=== PATIENT | female | born 1985 | race Caucasian/White ===

== ENCOUNTER 2024-01-01 08:41 | Day surgery (SDC) | payer BC, MEDICAID ==
[~2024-01-01] VITALS: Ht 152.4 cm; Wt 88.5 kg
[2024-01-01 11:02] LABS: HCG,QUAL RESULT NEGATIVE (NEGATIVE)
[2024-01-01] MEDS ORDERED: fentaNYL CITRATE/PF 100 MCG/2 ML AMP ONE (11:33)
[2024-01-01] MEDS ORDERED: MIDAZOLAM HCL 2 MG/2 ML VIAL (VERSED) ONE (11:33)
[2024-01-01] MEDS ORDERED: ACETAMINOPHEN I.V. 1000 MG 100 ML IV ONE (11:34)
[2024-01-01] MEDS ORDERED: PROPOFOL 200MG/ 20ML VIAL (DIPRIVAN) IV ONE (12:01)
[2024-01-01] MEDS ORDERED: NS IRRIG SOLN 1000 ML IR ONE (12:01)
[2024-01-01] MEDS ORDERED: LR 1,000 ML IV.SOLN IV ONE (12:01)
[2024-01-01] MEDS ORDERED: ONDANSETRON HCL 4 MG/2 ML VIAL IVP PRN (12:30)
[2024-01-01] MEDS ORDERED: fentaNYL CITRATE/PF 100 MCG/2 ML AMP IVP PRN ×2 (12:30)
[2024-01-01] MEDS ORDERED: HYDROmorphone 1 MG/ML INJ. CARTRIDGE IVP PRN (12:30)
[2024-01-01] MEDS ORDERED: LR 1,000 ML IV ONE (12:30)
[2024-01-01 12:45] VITALS: O2SAT 99
[2024-01-01 16:05] VITALS: BP_SYST 117; PULSE 66; RESP 18
== END 2024-01-01 14:18 | disposition home or self-care (01) ==
LOC: SDS 08:41 → SMU 10:05 → SDS 14:18
PROVIDERS: ATTEND Obstetrics & Gynecology
DX: D06.9 Carcinoma in situ of cervix, unspecified (principal); K21.9 Gastro-esophageal reflux disease without esophagitis; E66.01 Morbid (severe) obesity due to excess calories; J45.909 Unspecified asthma, uncomplicated; M06.9 Rheumatoid arthritis, unspecified; Z88.1 Allergy status to other antibiotic agents; Z90.49 Acquired absence of other specified parts of digestive tract; Z68.38 Body mass index [BMI] 38.0-38.9, adult
CPT/HCPCS: 87081; 57522; 84703; 88305; 88307; J3465; J2704; J3010; J7120; J0131

== ENCOUNTER 2024-05-14 09:59 | Day surgery (SDC) | payer MEDICAID ==
[~2024-05-14] VITALS: Ht 152.4 cm; Wt 88.9 kg
[2024-05-14 11:14] LABS: HCG,QUAL RESULT NEGATIVE (NEGATIVE)
[2024-05-14 11:30] VITALS: O2SAT 98
[2024-05-14] MEDS ORDERED: NS IRRIG SOLN 1000 ML IR ONE (11:50)
[2024-05-14] MEDS ORDERED: METOCLOPRAMIDE HCL 10 MG/2 ML VIAL ONE (11:50)
[2024-05-14] MEDS ORDERED: BUPIVACAINE /EPINEPHRINE/PF 0.25% 30 ML VIAL ONE (11:50)
[2024-05-14] MEDS ORDERED: ONDANSETRON HCL 4 MG/2 ML VIAL ONE (11:50)
[2024-05-14] MEDS ORDERED: KETOROLAC TROMETHAMINE 30 MG VIAL ONE (11:50)
[2024-05-14] MEDS ORDERED: ROCURONIUM BROMIDE 10 MG/ML (ZEMURON) ONE (11:50)
[2024-05-14] MEDS ORDERED: SUGAMMADEX SODIUM 200 MG/2 ML VIAL IV ONE (11:50)
[2024-05-14] MEDS ORDERED: SEVOFLURANE 15 MIN GAS INH ONE (11:50)
[2024-05-14] MEDS ORDERED: fentaNYL CITRATE/PF 100 MCG/2 ML AMP ONE (11:50)
[2024-05-14] MEDS ORDERED: MIDAZOLAM HCL 2 MG/2 ML VIAL (VERSED) ONE (11:50)
[2024-05-14] MEDS ORDERED: LR 1,000 ML IV.SOLN IV ONE (11:50)
[2024-05-14] MEDS ORDERED: PROPOFOL 200MG/ 20ML VIAL (DIPRIVAN) IV ONE (11:50)
[2024-05-14] MEDS ORDERED: SUCCINYLCHOLINE CHLORIDE 20 MG/ML(QUELICIN) ONE (11:50)
[2024-05-14] MEDS ORDERED: LIDOCAINE MPF 2% 5mL VIAL INJ ONE (11:50)
[2024-05-14] MEDS ORDERED: HYDROmorphone 1 MG/ML INJ. CARTRIDGE IVP PRN (13:00)
[2024-05-14] MEDS ORDERED: ONDANSETRON HCL 4 MG/2 ML VIAL IVP PRN (13:00)
[2024-05-14] MEDS ORDERED: HYDROmorphone 2 MG/ML VIAL IVP PRN (13:00)
[2024-05-14] MEDS ORDERED: KETOROLAC TROMETHAMINE 30 MG VIAL IVP PRN (13:00)
[2024-05-14] MEDS ORDERED: LR 1,000 ML IV SCH (13:00)
[2024-05-14 16:58] VITALS: BP_SYST 113; PULSE 73; RESP 16
== END 2024-05-14 15:22 | disposition home or self-care (01) ==
LOC: SMU 09:59 → SDS 09:59
PROVIDERS: ATTEND Obstetrics & Gynecology
DX: Z30.2 Encounter for sterilization (principal); J45.909 Unspecified asthma, uncomplicated; E66.01 Morbid (severe) obesity due to excess calories; Z68.38 Body mass index [BMI] 38.0-38.9, adult; Z91.013 Allergy to seafood; Z88.1 Allergy status to other antibiotic agents; Z90.49 Acquired absence of other specified parts of digestive tract; Z98.890 Other specified postprocedural states; Z79.899 Other long term (current) drug therapy
CPT/HCPCS: 87081; 58670; 84703; J3490 ×2; J1885; J2765; J3465; J2405; J2704; J0330; J3010; J7120; C1727; J2001